=== PATIENT | female | born 1935 | race Two or more races ===

== ENCOUNTER 2017-06-05 16:13 | Inpatient (IN) | payer MEDICARE, BC ==
[2017-06-05] MEDS ORDERED: HEPARIN SODIUM,PORCINE 5,000 UNIT/ML 1 ML VIAL IV PRN (18:39)
[2017-06-05] MEDS ORDERED: NITROGLYCERIN SL TABS 0.4 MG TAB SUBLINGUAL PRN (18:41)
[2017-06-05] MEDS ORDERED: SODIUM CHLORIDE 0.9% 1,000 ML in EMPTY BAG 1 BAG IV ONE (18:41)
[2017-06-05] MEDS ORDERED: ALPRAZolam 0.5 MG TAB PO PRN (18:41)
[2017-06-05] MEDS ORDERED: ALPRAZolam 0.25 MG TAB PO PRN (18:41)
[2017-06-05] MEDS ORDERED: HEPARIN SODIUM,PORCINE/D5W PMX 25,000 UNIT in DEXTROSE/WATER 1 500ML.BAG IV SCH (18:45)
[2017-06-05] MEDS ORDERED: HEPARIN SODIUM,PORCINE 5,000 UNIT/ML 1 ML VIAL IV ONE (19:00)
[2017-06-05 19:24] LABS: ALT 32 U/L (9-52); AST 20 U/L (14-36); Alkaline Phosphatase 73 U/L (38-126); Anion Gap 7 mmol/L; Blood Urea Nitrogen 17 mg/dL (7-17); Calcium 8.8 mg/dL (8.4-10.2); Carbon Dioxide 24 mmol/L (22-30); Chloride 105 mmol/L (98-107); Glucose 88 mg/dL (74-99); Non-African American GFR(MDRD) >60 (>60 ml/min/1.73 sqM); Sodium 136 mmol/L (137-145); Total Bilirubin 0.3 mg/dL (0.2-1.3); Total Protein 6.4 g/dL (6.3-8.2)
--- NOTE | 2017-06-05 19:30 | XR ---
EXAMINATION TYPE: XR chest 2V DATE OF EXAM: 06/05/2017 COMPARISON: 06/04/2017 HISTORY: Chest pain TECHNIQUE: Frontal and lateral views of the chest are obtained. FINDINGS: There is no heart failure nor confluent pneumonic infiltrate. Hiatal hernia is noted. Cost ophrenic angles are clear of fluid. Thoracic aorta is atheromatous. There are chest leads. There is s purring in the thoracic spine. IMPRESSION: Hiatal hernia. No active cardiopulmonary disease. No change.
[2017-06-05 20:35] LABS: Glucose,Whole Blood 102 mg/dL (75-99)
[2017-06-05] MEDS ORDERED: ATORVASTATIN 80 MG TAB PO SCH (21:00)
[2017-06-06] MEDS ORDERED: ASPIRIN 325 MG TAB PO ONE (06:00)
[2017-06-06] MEDS ORDERED: ATORVASTATIN 80 MG TAB PO ONE (06:00)
[2017-06-06 06:17] LABS: Glucose,Whole Blood 96 mg/dL (75-99)
[2017-06-06] MEDS ORDERED: IV FLUID CONTINUATION 1,000 ML IV ONE (08:30)
[2017-06-06] MEDS ORDERED: MIDAZOLAM 2 MG/2 ML VIAL IV ONE (08:32)
[2017-06-06] MEDS ORDERED: LIDOCAINE 2% INJ 20 MG/ML SQ ONE (08:35)
[2017-06-06] MEDS ORDERED: RX INFO: IV CONTRAST WAS GIVEN 1 EACH MISC MISCELLANE PRN (08:59)
[2017-06-06] MEDS ORDERED: ASPIRIN 81 MG PO SCH (09:00)
[2017-06-06] MEDS ORDERED: IOHEXOL 350 MG/ML 125ML BOTTLE INJ ONE (09:00)
[2017-06-06] MEDS ORDERED: SODIUM CHLORIDE 0.9% 1,000 ML IV SCH (09:00)
[2017-06-06] MEDS ORDERED: ISOSORBIDE MONONITRATE ER 30 MG TAB.ER.24H PO SCH (09:00)
--- NOTE | 2017-06-06 10:06 | CC ---
CARDIAC CATHETERIZATION REPORT INDICATION: Unstable angina. PROCEDURE NOTE: After obtaining informed consent, left heart catheterization and coronary angiogram were performed via the right femoral artery using standard Coy catheters. Patient tolerated the procedure well without any obvious immediate complications. Patient received moderate conscious sedation. Total sedation time was 20 minutes. A femoral angiogram was performed and addition was made for manual hemostasis. FINDINGS: 1. HEMODYNAMICS: Left ventricular end-diastolic pressure is 8 to 10 mm. There is no significant gradient across the aortic valve. 2. LEFT VENTRICULOGRAM: Left ventriculogram was not performed. 3. ANGIOGRAPHIC DATA:. 4. LEFT MAIN CORONARY ARTERY: Left main coronary artery appears calcified but is free of significant stenosis. Divides into left anterior descending coronary artery and circumflex coronary artery. Circumflex coronary artery is a large codominant vessel and is free of significant disease. The previously stented segment within the LAD appears patent with a 40% stenosis proximal to the stent. RIGHT CORONARY ARTERY is a fair caliber vessel, shows moderate long segment of stenosis. At its worst it seems to be around 50%, but this lesion has remained unchanged compared to the angiogram done last time in 2014. CONCLUSION: Two vessel coronary artery disease as described above with patent stent within the left anterior descending artery and lesions that are unchanged in the right coronary artery and a not significant lesion in the proximal left anterior descending artery. PLAN: Will manage the patient with medical therapy. See how she does and if necessary, bring her back for an FFR. Angiographic data was reviewed by Dr. Thomas, the on-call president/gm production & live experiences. SKYLA / ERICK: [id number] /
[2017-06-06 11:13] VITALS: RESP 18
[2017-06-06 11:28] LABS: Glucose,Whole Blood 104 mg/dL (75-99)
--- NOTE | 2017-06-06 11:41 | DS ---
DISCHARGE SUMMARY DATE OF ADMISSION: 06/05/2017 DATE OF DISCHARGE: 06/06/2017. FINAL DIAGNOSIS: Unstable angina. PROCEDURES PERFORMED: Left heart catheterization. HOSPITAL COURSE: This is a 81-year-old lady with history of coronary artery disease, status post angioplasty of proximal LAD, who presented to [facility] with unstable angina. She ruled out for myocardial infarction. Did not have any EKG changes. Due to this, she was transferred to [facility] for cardiac catheterization. Patient underwent cardiac catheterization that revealed patent stents within the LAD, moderate disease within the mid right coronary artery and mild disease proximal to the stent in the LAD. Angiographic data was reviewed by Dr. Thomas the on-call forest technician, who performed her angioplasty in the past. A decision was made that the lesions were not severe enough angiographically to perform angioplasty at this time. The FFR machine is not working hence patient could not undergo FFR at this time. The plan is to treat her with medical therapy with aspirin, nitrates, and statins and see how her symptoms evolve. If necessary, she will be brought back for an FFR down the road. DISCHARGE MEDICATIONS: Include aspirin, Imdur 30 mg daily, sublingual nitroglycerin p.r.n. basis. Pravachol 20 mg daily. FOLLOWUP: The patient will be followed up in my office in a week's time. I had a long conversation with the patient's daughters after the angiogram. I explained to them at length the angiographic findings, the rationale behind the treatment plans including not doing angioplasty. The rationale behind using nitrates and statins. While the exact etiology for patient's chest discomfort is unclear, it could be due to vasospasm with the underlying coronary artery disease. I have asked the daughters to talk to their mother about taking statins more regularly. MMODL / IJN: [id number] /
[2017-06-06 12:17] VITALS: BP 99/56; PULSE 70; TEMP 96.7
[2017-06-06] MEDS ORDERED: ACETAMINOPHEN TAB 325 MG TAB PO STA (13:08)
[2017-06-06 16:39] LABS: Glucose,Whole Blood 103 mg/dL (75-99)
[2017-06-06] MEDS ORDERED: PRAVASTATIN SODIUM 20 MG TAB PO SCH (21:00)
== END 2017-06-06 18:49 | disposition home or self-care (01) | DRG 287 ==
LOC: 6SEL 16:13
PROVIDERS: ADMIT Internal Medicine Cardiovascular Disease; ATTEND Internal Medicine Cardiovascular Disease
PROC: B2111ZZ Fluoroscopy of Multiple Coronary Arteries using Low Osmolar Contrast (ICD-10-PCS; principal; 2017-06-05)
PROC: 4A023N7 Measurement of Cardiac Sampling and Pressure, Left Heart, Percutaneous Approach (ICD-10-PCS; principal; 2017-06-05)
DX: I25.110 Atherosclerotic heart disease of native coronary artery with unstable angina pectoris (principal); Z95.5 Presence of coronary angioplasty implant and graft; Z79.82 Long term (current) use of aspirin
CPT/HCPCS: 71020; 80053; 83036; 85730; 93458

== ENCOUNTER 2024-04-28 00:24 | Inpatient (IN) | payer BC, MEDICARE ==
[2024-04-28] MEDS ORDERED: NALOXONE 0.4 MG/ML 1 ML VIAL IV PRN (00:32)
[2024-04-28] MEDS: ATORVASTATIN 80 MG TAB PO STA (00:35)
--- NOTE | 2024-04-28 00:35 | ED ---
General Adult HPI - General Chief complaint: Chest Pain Stated complaint: Chest Pain Time Seen by Provider: 04/28/24 00:29 Source: patient, RN notes reviewed, old records reviewed Mode of arrival: EMS Limitations: no limitations - History of Present Illness Initial comments: 88-year-old female presenting by paramedics with chief complaint of chest pain. Patient states that approximately 1130 she developed substernal chest pain and pressure which radiated to the jaw, bilateral shoulders. Patient does describe this as an ache, no stabbing or sharp pain. This was associated with nausea and diaphoresis. Patient states she does have a history of coronary artery disease as well as A-fib. Patient is quite healthy and lives alone. She states her p ain is improved after nitroglycerin and aspirin which were administered by paramedics. She still has 5 out of 10 chest pain. - Related Data Home Medications Medication Instructions Recorded Confirmed Aspirin 81 mg PO DAILY 11/25/14 06/05/17 Multivitamins, Thera [Multivitamin 1 tab PO DAILY 06/05/17 06/05/17 (formulary)] Previous Rx's Medication Instructions Recorded Isosorbide Mononitrate ER [Imdur] 30 mg PO DAILY #90 tab.er.24h 06/06/17 Nitroglycerin Sl Tabs [Nitrostat] 0.4 mg SUBLINGUAL Q5M PRN #25 tab 06/06/17 Pravastatin Sodium [Pravachol] 20 mg PO HS #90 tab 06/06/17 Allergies Allergy/AdvReac Type Severity Reaction Status Date / Time Penicillins Allergy Unknown Verified 04/28/24 00:40 Review of Systems ROS Statement: Those systems with pertinent positive or pertinent negative responses have been documented in the HPI. ROS Other: All systems not noted in ROS Statement are negative. Past Medical History Past Medical History: Chest Pain / Angina, GERD/Reflux, Osteoarthritis (OA) Additional Past Medical History / Comment(s): currently having pressure in chest that radiates to juan arm and jaw/neck, increased sob with exertion and felt like i was going to pass out. past fibroids(had hysterectomy), hiatal hernia History of Any Multi-Drug Resistant Organisms: None Reported Past Surgical History: Appendectomy, Bladder Surgery, Cholecystectomy, Heart Catheterization With Stent, Hysterectomy Additional Past Surgical History / Comment(s): cystocele/rectocele, cataracts- lens implants Past Anesthesia/Blood Transfusion Reactions: No Reported Reaction Date of Last Stent Placement:: unk Past Psychological History: No Psychological Hx Reported Smoking Status: Never smoker Past Alcohol Use History: Occasional Past Drug Use History: None Reported - Past Family History Brother(s) Family Medical History: Congestive Heart Failure (CHF), Coronary Artery Disease (CAD), Myocardial Infarction (VT) Additional Family Medical History / Comment(s): 2 brothers had cabg Mother Additional Family Medical History / Comment(s): at age 93 Father Additional Family Medical History / Comment(s): at age 78 with emphysema Daughter(s) Family Medical History: Cancer Additional Family Medical History / Comment(s): LIVER General Exam Limitations: no limitations General appearance: alert, in no apparent distress Head exam: Present: atraumatic, normocephalic Eye exam: Present: normal appearance, PERRL ENT exam: Present: normal exam Neck exam: Present: normal inspection. Absent: tenderness, meningismus Respiratory exam: Present: normal lung sounds bilaterally. Absent: respiratory distress Cardiovascular Exam: Present: regular rate, normal rhythm GI/Abdominal exam: Present: soft. Absent: distended, tenderness Extremities exam: Present: pedal edema Neurological exam: Present: alert, oriented X3, CN II-XII intact. Absent: motor sensory deficit Psychiatric exam: Present: normal affect, normal mood Skin exam: Present: diaphoretic Course Vital Signs 04/28/24 04/28/24 04/28/24 00:26 00:30 00:35 Temperature 98.5 F Pulse Rate 69 58 L 62 Pulse Rate [ Senior Manager Mmcoe ] Respiratory 18 18 18 Rate Blood Pressure 175/85 177/83 172/89 O2 Sat by Pulse 98 99 98 Oximetry 04/28/24 04/28/24 04/28/24 00:40 00:43 00:45 Temperature Pulse Rate 61 66 Pulse Rate [ 65 Senior Manager Mmcoe ] Respiratory 18 20 Rate Blood Pressure 163/105 157/87 O2 Sat by Pulse 98 98 Oximetry 04/28/24 04/28/24 00:50 00:55 Temperature Pulse Rate 61 55 L Pulse Rate [ Senior Manager Mmcoe ] Respiratory 20 20 Rate Blood Pressure 151/83 163/89 O2 Sat by Pulse 98 98 Oximetry Medical Decision Making - Medical Decision Making Was pt. sent in by a medical professional or institution (, PA, CALL CENTER RN, urgent care, hospital, or residential...) When possible be specific @ -No Did you speak to anyone other than the patient for history (EMS, parent, family, police, friend...)? What history was obtained from this source @ -No Did you review nursing and triage notes (agree or disagree)? Why? @ -I reviewed and agree with nursing and triage notes Were old charts reviewed (outside hosp., previous admission, EMS record, old EKG, old radiological studies, urgent care reports/EKG's, residential records)? Report findings @ -No old charts were reviewed Differential Chest Pain: Stable Angina, Unstable Angina, STEMI, NSTEMI Aortic Dissection, Pneumothorax, Musculoskeletal, Esophageal Spasm GERD, Cholecystitis, Pancreatitis, Zoster, this is not meant to be an all-inclusive list. EKG interpreted by me (3pts min.). @Sinus rhythm rate of 62, ID interval 176, QRS duration 98, QTc 450, ST segment elevation in lead III and aVF, T wave inversion and ST segment depression in lead I and aVL. X-rays interpreted by me (1pt min.). @1 single view chest x-ray cardiomegaly, no pneumothorax, suprahilar opacity on the right. CT interpreted by me (1pt min.). @ -None done U/S interpreted by me (1pt. min.). @ -None done What testing was considered but not performed or refused? (CT, X-rays, U/S, labs)? Why? @ -None What meds were considered but not given or refused? Why? @ -None Did you discuss the management of the patient with other professionals (professionals i.e. , PA, CALL CENTER RN, lab, RT, psych nurse, social media designer, poultry debeaker, teacher, state patrol officer, skilled nursing case manager)? Give summary @ -Case discussed with Dr. King covering for cardiology. [facility] has been paged Was smoking cessation discussed for >3mins.? @ -No Was critical care preformed (if so, how long)? @ -[Yes, 35 minutes Were there social determinants of health that impacted care today? How? (Homelessness, low income, unemployed, alcoholism, drug addiction, transportation, low edu. Level, literacy, decrease access to med. care, long-term, rehab)? @ -No Was there de-escalation of care discussed even if they declined (Discuss DNR or withdrawal of care, Hospice)? DNR status @ -No What co-morbidities impacted this encounter? (DM, HTN, Smoking, COPD, CAD, Cancer, CVA, ARF, Chemo, Hep., AIDS, mental health diagnosis, sleep apnea, morbid obesity)? @ -[Coronary artery disease Was patient admitted / discharged? Hospital course, mention meds given and route, prescriptions, significant lab abnormalities, going to OR and other pertinent info. @ -Patient admitted with ST segment elevation in the inferior leads. History consistent with ACS with typical chest pain. Patient had been given aspirin nitroglycerin by paramedics. She is given Lipitor and heparin in the emergency department. She is taken urgently to the [facility]. Patient is agreeable with heart cath. Undiagnosed new problem with uncertain prognosis? @ -[No Drug Therapy requiring intensive monitoring for toxicity (Heparin, Nitro, Insulin, Cardizem)? @ -No Were any procedures done? @ -No Diagnosis/symptom? @ -[STEMI Acute, or Chronic, or Acute on Chronic? @ -Acute Uncomplicated (without systemic symptoms) or Complicated (systemic symptoms)? @ -Default Side effects of treatment? @ -No Exacerbation, Progression, or Severe Exacerbation? @ -No Poses a threat to life or bodily function? How? (Chest pain, USA, VT, pneumonia, PE, COPD, DKA, ARF, appy, cholecystitis, CVA, Diverticulitis, Homicidal, Suicidal, threat to staff... and all critical care pts) @Yes, ACS - Lab Data Result diagrams: 04/28/24 00:32 Critical Care Time Critical Care Time: Yes Total Critical Care Time: 35 Disposition Clinical Impression: ST elevation myocardial infarction (STEMI) Disposition: ADMITTED IP TO THIS HOSP Condition: Serious Is patient prescribed a controlled substance at d/c from ED?: No Time of Disposition: 00:35
[2024-04-28] MEDS: HEPARIN SODIUM 1,000 UN/ML (10ML VL) IV ONE (00:36)
[2024-04-28] MEDS: SODIUM CHLORIDE 0.9% 1,000 ML IV SCH ×2 (00:37→03:37)
[2024-04-28 00:50] LABS: Basophils # (A) 0.1 k/uL (0-0.2); Basophils % (A) 1 %; Eosinophils # (A) 0.5 k/uL (0-0.7); Eosinophils % (A) 7 %; HCT 43.4 % (34.0-46.0); HGB 13.9 gm/dL (11.4-16.0); Lymphocytes # (A) 2.5 k/uL (1.0-4.8); Lymphocytes % (A) 33 %; MCH 31.3 pg (25.0-35.0); Mean Platelet Volume 7.8; Monocytes # (A) 0.7 k/uL (0-1.0); Monocytes % (A) 9 %; Neutrophils # (A) 3.6 k/uL (1.3-7.7); Neutrophils % (A) 47 %; Platelet Count 184 k/uL (150-450); RBC 4.43 m/uL (3.80-5.40); WBC 7.7 k/uL (3.8-10.6)
--- NOTE | 2024-04-28 00:54 | XR ---
EXAM: XR Chest, 1 View CLINICAL HISTORY: Chest pain TECHNIQUE: Frontal view of the chest. COMPARISON: Chest 2 views dated 06/05/2017 FINDINGS: Lungs: Subsegmental perihilar streaky opacities noted bilaterally. No lobar consolidation. Asymmetric heterogeneous fullness in the right suprahilar region. The posterior regional rib margins are maintained within this region. Pleural space: No large pleural effusion or pneumothorax. Heart: Borderline cardiomegaly, new from the previous examination. Mediastinum: Hiatal hernia, similar to the previous examination. Bones/joints: No acute osseous abnormality. IMPRESSION: 1. Borderline cardiomegaly, new from the previous examination. While this is presumed accentuated by portable technique, please correlate with medical history. 2. Hiatal hernia, similar to the previous examination. 3. Subsegmental perihilar streaky opacities noted bilaterally. No lobar consolidation. Differential consideration includes perihilar atelectasis with slightly diminished lung volumes versus atypical interstitial infection. 4. Asymmetric heterogeneous fullness in the right suprahilar region. The posterior regional rib margins are maintained within this region, suggesting subsegmental atelectasis or consolidation. An underlying mass is thought to be less likely; however, recommend repeat imaging, ideally with full inspiratory effort and non-portable technique.
[2024-04-28 01:05] LABS: Partial Thromboplastin Time 25.1 sec (22.0-30.0); Prothrombin Time 11.3 sec (10.0-12.5)
[2024-04-28 01:06] LABS: ALT 17 U/L (4-34); AST 27 U/L (14-36); African American GFR (CKD) >90 (>60 ml/min/1.73 sqM); Albumin 3.8 g/dL (3.5-5.0); Alkaline Phosphatase 86 U/L (38-126); Anion Gap 6 mmol/L; Blood Urea Nitrogen 23 mg/dL (7-17); Calcium 8.9 mg/dL (8.4-10.2); Carbon Dioxide 22 mmol/L (22-30); Chloride 108 mmol/L (98-107); Glucose 124 mg/dL (74-99); Magnesium 1.8 mg/dL (1.6-2.3); Non-African American GFR(CKD) 87 (>60 ml/min/1.73 sqM); Potassium 4.1 mmol/L (3.5-5.1); Sodium 136 mmol/L (137-145); Total Bilirubin 0.5 mg/dL (0.2-1.3); Total Protein 6.8 g/dL (6.3-8.2)
--- NOTE | 2024-04-28 01:07 | P.CRDCN ---
History of Present Illness History of present illness: HISTORY OF PRESENTING ILLNESS This is a pleasant 88-year-old with past medical history significant for CAD status post PCI of LAD 2014, hyperlipidemia, paroxysmal atrial fibrillation. She follows with a property utilization manager in the [facility] area. She had been seen back in 2014 with PCI of her LAD. She states she has been doing fairly well up until the middle of the night at 11:30 PM she started to develop chest tightness and pressure. She states she has some mild discomfort similar to this when she had atrial fibrillation however none since that time. She was found to have ST elevation and was given aspirin and nitro with some mild improvement in discomfort. Still having 5 or 10 chest pain. Does not smoke, no alcohol, no illicit drugs. Family history of brother having bypass. EKG shows normal sinus rhythm, ST elevation inferiorly with reciprocal ST depressions 1 and aVL. REVIEW OF SYSTEMS At the time of my exam: CONSTITUTIONAL: Denies fever or chills. CARDIOVASCULAR: +chest pain, no shortness of breath, orthopnea, PND or palpitations. RESPIRATORY: Denies cough. GASTROINTESTINAL: Denies abdominal pain, diarrhea, constipation, nausea or vomiting. MUSCULOSKELETAL: Denies myalgias. NEUROLOGIC: Denies numbness, tingling or weakness. ENDOCRINE: Denies fatigue, weight change, polydipsia or polyurina. GENITOURINARY: Denies burning, hematuria or urgency with micturation. HEMATOLOGIC: Denies history of anemia or bleeding. PHYSICAL EXAMINATION Vital signs reviewed. CONSTITUTIONAL: No apparent distress. HEENT: Head is normocephalic. Pupils are equal, round. Sclerae anicteric. Mucous membranes of the mouth are moist. No JVD. No carotid bruit. CHEST EXAMINATION: Lungs are clear to auscultation. No chest wall tenderness is noted on palpation or with deep breathing. HEART EXAMINATION: Regular rate and rhythm. S1, S2 heard. No murmurs, gallops or rub. ABDOMEN: Soft, nontender. Positive bowel sounds. EXTREMITIES: 2+ peripheral pulses, no lower extremity edema and no calf tenderness. NEUROLOGIC EXAMINATION: Patient is awake, alert and oriented x3. ASSESSMENT Inferior STEMI CAD status post PCI of LAD 2014 Hyperlipidemia Paroxysmal atrial fibrillation PLAN Patient with inferior ST elevations consistent with STEMI. Discussed heart catheterization and patient is agreeable. Emergency heart catheterization. Check 2-D echo. Continue Eliquis and likely Plavix pending PCI. Further recommendations to follow. Past Medical History Past Medical History: Chest Pain / Angina, GERD/Reflux, Osteoarthritis (OA) Additional Past Medical History / Comment(s): currently having pressure in chest that radiates to juan arm and jaw/neck, increased sob with exertion and felt like i was going to pass out. past fibroids(had hysterectomy), hiatal hernia History of Any Multi-Drug Resistant Organisms: None Reported Past Surgical History: Appendectomy, Bladder Surgery, Cholecystectomy, Heart Catheterization With Stent, Hysterectomy Additional Past Surgical History / Comment(s): cystocele/rectocele, cataracts- lens implants Past Anesthesia/Blood Transfusion Reactions: No Reported Reaction Date of Last Stent Placement:: unk Past Psychological History: No Psychological Hx Reported Smoking Status: Never smoker Past Alcohol Use History: Occasional Past Drug Use History: None Reported - Past Family History Brother(s) Family Medical History: Congestive Heart Failure (CHF), Coronary Artery Disease (CAD), Myocardial Infarction ([place]) Additional Family Medical History / Comment(s): 2 brothers had cabg Mother Additional Family Medical History / Comment(s): at age 93 Father Additional Family Medical History / Comment(s): at age 78 with emphysema Daughter(s) Family Medical History: Cancer Additional Family Medical History / Comment(s): LIVER Medications and Allergies Home Medications Medication Instructions Recorded Confirmed Type Aspirin 81 mg PO DAILY 11/25/14 06/05/17 History Multivitamins, Thera [Multivitamin 1 tab PO DAILY 06/05/17 06/05/17 History (formulary)] Isosorbide Mononitrate ER [Imdur] 30 mg PO DAILY #90 tab.er.24h 06/06/17 Rx Nitroglycerin Sl Tabs [Nitrostat] 0.4 mg SUBLINGUAL Q5M PRN #25 tab 06/06/17 Rx Pravastatin Sodium [Pravachol] 20 mg PO HS #90 tab 06/06/17 Rx Allergies Allergy/AdvReac Type Severity Reaction Status Date / Time Penicillins Allergy Unknown Verified 04/28/24 00:40 Physical Exam Vitals: Vital Signs Temp Pulse Pulse Resp BP Pulse Ox 04/28/24 00:55 55 L 20 163/89 98 04/28/24 00:50 61 20 151/83 98 04/28/24 00:45 66 20 157/87 98 04/28/24 00:43 65 04/28/24 00:40 61 18 163/105 98 04/28/24 00:35 62 18 172/89 98 04/28/24 00:30 58 L 18 177/83 99 04/28/24 00:26 98.5 F 69 18 175/85 98 Intake and Output 04/27/24 04/27/24 04/28/24 14:59 22:59 06:59 Other: Weight 72.575 kg Results 04/28/24 00:32 04/28/24 00:32 Cardiac Enzymes 04/28/24 Range/Units 00:32 AST 27 (14-36) U/L CBC 04/28/24 Range/Units 00:32 WBC 7.7 (3.8-10.6) k/uL RBC 4.43 (3.80-5.40) m/uL Hgb 13.9 (11.4-16.0) gm/dL Hct 43.4 (34.0-46.0) % Plt Count 184 (150-450) k/uL Comprehensive Metabolic Panel 04/28/24 Range/Units 00:32 Sodium 136 L (137-145) mmol/L Potassium 4.1 (3.5-5.1) mmol/L Chloride 108 H (98-107) mmol/L Carbon Dioxide 22 (22-30) mmol/L BUN 23 H (7-17) mg/dL Creatinine 0.53 (0.52-1.04) mg/dL Glucose 124 H (74-99) mg/dL Calcium 8.9 (8.4-10.2) mg/dL AST 27 (14-36) U/L ALT 17 (4-34) U/L Alkaline Phosphatase 86 (38-126) U/L Total Protein 6.8 (6.3-8.2) g/dL Albumin 3.8 (3.5-5.0) g/dL Current Medications Generic Name Dose Route Start Last Admin Trade Name Freq PRN Reason Stop Dose Admin Sodium Chloride 1,000 mls @ 75 mls/hr 04/28/24 00:45 04/28/24 00:37 Saline 0.9% IV 75 mls/hr .[id number] VERNON Administration Naloxone HCl 0.2 mg 04/28/24 00:32 Naloxone 0.4 Mg/Ml 1 Ml Vial IV Q2M PRN Opioid Reversal Intake and Output 04/27/24 04/27/24 04/28/24 14:59 22:59 06:59 Other: Weight 72.575 kg Patient Weight 04/28/24 06:59 Weight 72.575 kg 04/28/24 00:32 04/28/24 00:32
[2024-04-28] MEDS: MIDAZOLAM 2 MG/2 ML VIAL IVP ONE (01:15)
[2024-04-28] MEDS: fentaNYL (PF) 50 MCG/ML 2 ML AMP IVP ONE (01:15)
[2024-04-28] MEDS: LIDOCAINE 1% INJ 10MG/ML (20 ML MDV) SQ ONE (01:16)
[2024-04-28] MEDS: VERAPAMIL SYRINGE (5 MG/10 ML) INTRAARTER ONE (01:18)
[2024-04-28] MEDS: CLOPIDOGREL 75 MG TAB PO ONE (01:27)
[2024-04-28] MEDS: ATROPINE SULFATE 0.1 MG/ML 10ML SYRINGE IVP ONE (01:53)
[2024-04-28] MEDS: NITROGLYCERIN 1000MCG/10ML SYRINGE INTRACORON ONE (01:55)
[2024-04-28] MEDS: HEPARIN SODIUM 1,000 UN/ML (10ML VL) IVP ONE ×3 (01:59→02:30)
[2024-04-28] MEDS: IV FLUID CONTINUATION 900 ML IV ONE (02:28)
[2024-04-28] MEDS: IOPAMIDOL-370 100ML BTL INJ ONE (02:28)
[2024-04-28] MEDS ORDERED: RX INFO: IV CONTRAST WAS GIVEN 1 EACH MISC MISCELLANE PRN (02:42)
[2024-04-28] MEDS ORDERED: ATROPINE SULFATE 0.1 MG/ML 10ML SYRINGE IV PRN (02:42)
[2024-04-28] MEDS ORDERED: NITROGLYCERIN SL TABS 0.4 MG TAB SUBLINGUAL PRN (02:42)
[2024-04-28] MEDS ORDERED: ZOLPIDEM 5 MG TAB PO PRN (02:42)
--- NOTE | 2024-04-28 02:42 | P.PRCINT ---
Percutaneous Coronary Int. - Percutaneous Coronary Intervention Percutaneous Coronary Intervention: PROCEDURES PERFORMED: Bilateral coronary angiography, ultrasound guided arterial access, PCI proximal to mid RCA with overlapping 3.5 x 28mm, 3.5 x 38mm Xience SEAN and PCI of distal RCA with a 3.0 x 8mm Xience SEAN INDICATION: Inferior STEMI CONSENT:I have discussed the risks, benefits and alternative therapies for the above-mentioned procedure and for both sedation/analgesia as well as necessary blood product administration, if indicated, as they pertain to this patient. The patient has indicated understanding and acceptance of the risks and procedures discussed. PROCEDURE: After the risks, benefits and alternatives of the above mentioned procedure explained in detail with the patient, informed consent was obtained. Patient was taken to the catheterization lab and prepped and draped in usual fashion. Ultrasound guidance was used to assess for arterial access. 1% lidocaine was used to anesthetize the right radial artery. A 6-Croatian sheath was placed in the right radial artery using modified Seldinger technique and ultrasound guidance. Left coronary angiography was performed with a 5-Croatian JL 3.5 catheter and right coronary angiography was attempted with a 6Fr AL 0.75 guide and a 6-Croatian FR5 catheter however due to toruosity, unable to sit guide. Therefore radial approach was abandonded and a 6Fr sheath was placed in the right femoral artery using ultrasound guidance. multiple catheters were attempted to engage the RCA with difficulty manipulating the catheter secondary to patient's tortuosity. AL 0.75 guide and AR to guide were unable to cannulate the artery. Using a 6-Croatian FR5 guide, the artery was able to be cannulated. A 0.014 was for wire was advanced in the distal PDA. Predilation was performed with a 2.5 x 12 mm balloon. There was a more focal distal 80% RCA and PDA stenosis and attempted to place a 3.0 x 12 mm stent however unable to pass. The midportion of the RCA was predilated with a 3.5 NC balloon. Next a 3.5 x 38 mm Xience SEAN was placed in the mid RCA. The guideliner was able to be brought down to the mid RCA and with the help of the guideliner a 3.0 x 8 mm stent was able to be placed at the distal RCA and the PDA.next a 3.5 x 28 mm Xience SEAN was placed overlapping the first stents back to the origin of the RCA. The proximal and mid stents were postdilated with a 3.5 noncompliant balloon. Final angiograms were performed. Pre-intervention there was 100% stenosis with AFSANEH 0 flow and post intervention there was <10% stenosis and AFSANEH 3 flow. The right radial sheath was removed and a TR band was placed with hemostasis achieved. A femoral angiogram was performed which showed adequate anatomy for closure and therefore a 6-Croatian Angio-Seal was placed. The patient tolerated the procedure well. Patient was transported back to the post catheterization holding area in stable condition. Conscious Sedation: Patient was monitored under the direct supervision of myself for conscious sedation using Versed and fentanyl for a total duration of 75 minutes HEMODYNAMICS: Ao: 154/88 SELECTIVE CORONARY ARTERIOGRAPHY: LEFT MAIN: The left main is a large caliber vessel which bifurcates into the LAD and circumflex. There is no significant stenosis. LEFT ANTERIOR DESCENDING CORONARY ARTERY: LAD is a large caliber vessel which wraps around to the apex. There is a patent proximal mid LAD stent with 20-30% proximal LAD stenosis. There is a mid LAD 40% stenosis after a moderate caliber diagonal 1 branch and otherwise mild luminal irregularities.. LEFT CIRCUMFLEX CORONARY ARTERY: Left circumflex is a moderate to large caliber vessel with 20-30% proximal and mid circumflex stenosis and otherwise mild luminal irregularities. The circumflex gives off a PLV branch and is codominant. RIGHT CORONARY ARTERY: The right coronary artery is a large caliber vessel which gives off a PDA and PLV branch and is the dominant vessel. There is 100% proximal RCA stenosis. There is additional 80% distal RCA stenosis and otherwise mild luminal irregularities. FINAL IMPRESSION: 1. CAD as described above including 20-30% proximal LAD stenosis, patent proximal and mid LAD stent, mid LAD 40% stenosis, proximal circumflex 20th 30% stenosis, 100% proximal RCA stenosis, 80% distal RCA stenosis 2. S/p PCI proximal to mid RCA with overlapping 3.5 x 28mm, 3.5 x 38mm Xience SEAN and PCI of distal RCA with a 3.0 x 8mm Xience SEAN PLAN: 1. Aggressive risk factor modification per most recent ACC/AHA guidelines. 2. Continue aspirin, Plavix and Eliquis for 1 week then transition to Eliquis and Plavix for 12 months
[2024-04-28 03:15] LABS: Glucose,Whole Blood 139 mg/dL (70-110)
--- NOTE | 2024-04-28 07:26 | P.PN ---
Subjective Progress Note Date: 04/28/24 PROGRESS NOTE The patient is an 88-year-old female with a known history of CAD, status post stenting of the LAD in 2014 who presented with an acute inferior wall myocardial infarction, underwent cardiac catheterization by Dr. King and was found to have occluded RCA and underwent stenting of the RCA using a 3.5 x 28, 3.5 x 38 and 3.0 x 8 mm Xience stent. The LAD was patent with no evidence of high-grade stenosis. She has a history of paroxysmal atrial fibrillation and has been anticoagulated. She is in sinus mechanism at this time. She is feeling well this morning without any symptoms of chest discomfort and her breathing is stable. She is active at home without any symptoms of chest discomfort until yesterday. Hemodynamically she is stable. There is no evidence of ventricular ectopic activity. Medications: Aspirin, atorvastatin 80 mg daily, clopidogrel 75 mg daily PHYSICAL EXAMINATION: Blood pressure 128/70 heart rate 70 LUNGS: Clear to auscultation HEART: Regular rate and rhythm, S1, S2. No S3. Systolic ejection murmur ABDOMEN: Soft, nontender, no organomegaly EXTREMETIES: No edema, right femoral area clean, TR band on the right radial artery, no hematoma LAB: On presentation potassium 4.1, BUN 23, creatinine 0.53 IMPRESSION: 1. Status post inferior wall myocardial infarction with stenting of the RCA 2. Paroxysmal atrial fibrillation, maintaining sinus mechanism 3. Prior stenting of the LAD in 2014, patent 4. History of hyperlipidemia PLAN: 1. Start Eliquis tonight, continue aspirin for another week then stop aspirin and continue on Plavix and Eliquis for 1 year 2. Obtain an echocardiogram with Doppler 3. Start low-dose beta-dawna 4. If stable in the afternoon transfer to telemetry and increase physical activity Objective - Vital Signs Vital signs: Vital Signs Temp 98.8 F 04/28/24 04:00 Pulse 73 04/28/24 07:02 Resp 18 04/28/24 07:02 BP 128/71 04/28/24 07:02 Pulse Ox 99 04/28/24 07:02 FiO2 Intake & Output 04/27/24 04/28/24 04/28/24 18:59 06:59 18:59 Intake Total 725 75 Output Total 0 0 Balance 725 75 Weight 72.575 kg Intake: IV 500 Intake, IV Titration 225 75 Amount Sodium Chloride 0.9% 1, 225 75 000 ml @ 75 mls/hr IV . [id number] [facility] Rx#:[id number] Output: Urine 0 0 - Labs CBC & Chem 7: 04/28/24 00:32 04/28/24 00:32 Labs: Abnormal Lab Results - Last 24 Hours (Table) 04/28/24 04/28/24 04/28/24 Range/Units 00:32 00:32 03:13 Sodium 136 L (137-145) mmol/L Chloride 108 H (98-107) mmol/L BUN 23 H (7-17) mg/dL Glucose 124 H (74-99) mg/dL POC Glucose (mg/dL) 139 H (70-110) mg/dL Troponin I 0.055 H* (0.000-0.034) ng/mL
[2024-04-28] MEDS ORDERED: MAG HYDROX/AL HYDROX/SIMETH 30 ML CUP PO PRN (08:00)
[2024-04-28] MEDS: METOPROLOL TARTRATE 25 MG TAB PO SCH (09:00)
[2024-04-28] MEDS: ASPIRIN 81 MG PO SCH (09:00)
[2024-04-28 10:25] VITALS: BMI 31.2
--- NOTE | 2024-04-28 17:17 | CA ---
Transthoracic Echo Report Name: Agnieszka Ragland Age: 88 Gender: F : 1935 Exam Date: 04/28/2024 08:20 Exam Location: [place] [facility] Ht (in): 60 Wt (lb): 160 Ordering Physician: Davie King DO ([email or web address]) Attending/Referring Phys: Zipper Measurer Jenny Enciso RDCS Procedure CPT: Indications: Re Inferior STEMI Cardiac Hx: Technical Quality: Fair Contrast 1: Total Dose (mL): Contrast 2: Total Dose (mL): MEASUREMENTS (Male / Female) Normal Values 2D ECHO LV Diastolic Diameter PLAX 3.8 cm 4.2 - 5.9 / 3.9 - 5.3 cm LV Systolic Diameter PLAX 1.6 cm IVS Diastolic Thickness 1.4 cm 0.6 - 1.0 / 0.6 - 0.9 cm LVPW Diastolic Thickness 1.2 cm 0.6 - 1.0 / 0.6 - 0.9 cm LV Relative Wall Thickness 0.7 RV Internal Dim ED PLAX 2.5 cm LA Volume 60.8 cm??? 18 - 58 / 22 - 52 cm??? LA Volume Index 34.1 cm???/m??? 16 - 28 cm???/m??? M-MODE Aortic Root Diameter MM 2.3 cm LA Systolic Diameter MM 3.3 cm LA Ao Ratio MM 1.5 AV Cusp Separation MM 1.4 cm DOPPLER AV Peak Velocity 177.8 cm/s AV Peak Gradient 12.6 mmHg AV Mean Velocity 120.9 cm/s AV Mean Gradient 6.5 mmHg AV Velocity Time Integral 35.4 cm AI Peak Velocity 384.1 cm/s AI Peak Gradient 59.0 mmHg AI Pressure Half Time 504.9 ms LVOT Peak Velocity 126.3 cm/s LVOT Peak Gradient 6.4 mmHg LVOT Velocity Time Integral 29.0 cm MV Area PHT 3.8 cm??? Mitral E Point Velocity 57.6 cm/s Mitral A Point Velocity 107.7 cm/s Mitral E to A Ratio 0.5 MV Deceleration Time 198.9 ms MV E' Velocity 4.2 cm/s Mitral E to MV E' Ratio 13.7 TR Peak Velocity 248.7 cm/s TR Peak Gradient 24.7 mmHg Right Ventricular Systolic Press 29.0 mmHg FINDINGS Left Ventricle Moderately increased left ventricular wall thickness. Left ventricular cavity size normal. Normal left ventricular systolic function with no obvious regional wall motion abnormalities. Left ventricular ejection fraction is estimated at 55-60 %. Grade 1 diastolic dysfunction. Right Ventricle Normal right ventricular size and function. Right ventricular systolic pressure within normal limits. Right Atrium Normal right atrial size. Left Atrium Mildly increased left atrial volume. Mildly increased left atrial area. Mitral Valve Structurally normal mitral valve. Mitral valve thickened. Moderate mitral annular calcification. Mild mitral regurgitation. Aortic Valve Trileaflet aortic valve. No aortic valve stenosis. But mild aortic insufficiency Tricuspid Valve Structurally normal tricuspid valve. Mild tricuspid regurgitation. Pulmonic Valve Structurally normal pulmonic valve. Pericardium No pericardial effusion. Aorta Normal size aortic root and proximal ascending aorta. CONCLUSIONS Normal LV systolic function Aortic sclerosis with mild aortic insufficiency Thickened mitral valve leaflets with mild mitral regurgitation Previewed by: Dr. Andrews Thomas MD (Electronically Signed) Final Date: 28 April 2024 15:52
[2024-04-28] MEDS: APIXABAN 5 MG TAB PO SCH (20:10)
[2024-04-28] MEDS: ATORVASTATIN 80 MG TAB PO SCH (20:11)
[2024-04-29 06:40] LABS: Basophils # (A) 0.1 k/uL (0-0.2); Basophils % (A) 1 %; Eosinophils # (A) 0.4 k/uL (0-0.7); Eosinophils % (A) 4 %; HCT 37.5 % (34.0-46.0); HGB 11.8 gm/dL (11.4-16.0); Hypochromasia Slight; Lymphocytes # (A) 1.6 k/uL (1.0-4.8); Lymphocytes % (A) 18 %; MCH 32.1 pg (25.0-35.0); MCHC 31.6 g/dL (31.0-37.0); MCV 101.5 fL (80.0-100.0); Macrocytosis Slight; Mean Platelet Volume 7.9; Monocytes % (A) 11 %; Neutrophils % (A) 65 %; Platelet Count 171 k/uL (150-450); RBC 3.69 m/uL (3.80-5.40); RDW 13.2 % (11.5-15.5); WBC 9.2 k/uL (3.8-10.6)
[2024-04-29 07:07] LABS: ALT 20 U/L (4-34); African American GFR (CKD) >90 (>60 ml/min/1.73 sqM); Albumin 3.1 g/dL (3.5-5.0); Blood Urea Nitrogen 15 mg/dL (7-17); Calcium 8.7 mg/dL (8.4-10.2); Carbon Dioxide 21 mmol/L (22-30); Glucose 103 mg/dL (74-99); Non-African American GFR(CKD) 87 (>60 ml/min/1.73 sqM); Sodium 133 mmol/L (137-145); Total Bilirubin 0.9 mg/dL (0.2-1.3); Total Protein 5.6 g/dL (6.3-8.2)
[2024-04-29 07:18] LABS: AST 67 U/L (14-36); Alkaline Phosphatase 58 U/L (38-126)
[2024-04-29 07:23] LABS: Anion Gap 1 mmol/L; Chloride 111 mmol/L (98-107)
--- NOTE | 2024-04-29 07:40 | P.PN ---
Subjective Progress Note Date: 04/29/24 PROGRESS NOTE The patient is an 88-year-old female with a known history of CAD, status post stenting of the LAD in 2014 who presented with an acute inferior wall myocardial infarction, underwent cardiac catheterization by Dr. King and was found to have occluded RCA and underwent stenting of the RCA using a 3.5 x 28, 3.5 x 38 and 3.0 x 8 mm Xience stent. The LAD was patent with no evidence of high-grade stenosis. She has a history of paroxysmal atrial fibrillation and has been anticoagulated. She is in sinus mechanism at this time. She is feeling well this morning without any symptoms of chest discomfort and her breathing is stable. She is active at home without any symptoms of chest discomfort until yesterday. Hemodynamically she is stable. There is no evidence of ventricular ectopic activity. April 29: The patient feels well this morning, she denies any chest discomfort, she is ambulating in the room without difficulties. She continues to be in sinus mechanism. Hemodynamically stable. Her echocardiogram showed a preserved systolic function with mild mitral regurgitation and mild aortic regurgitation. Her EKG is consistent with inferior wall myocardial infarction. Medications: Aspirin, atorvastatin 80 mg daily, clopidogrel 75 mg daily, Eliquis 5 mg twice a day, metoprolol 25 mg twice a day PHYSICAL EXAMINATION: Blood pressure 102/40 heart rate 60 LUNGS: Clear to auscultation HEART: Regular rate and rhythm, S1, S2. No S3. Systolic ejection murmur ABDOMEN: Soft, nontender, no organomegaly EXTREMETIES: No edema, LAB: Hemoglobin 11.8, BUN 15, creatinine 0.52 IMPRESSION: 1. Status post inferior wall myocardial infarction with stenting of the RCA 2. Paroxysmal atrial fibrillation, maintaining sinus mechanism 3. Prior stenting of the LAD in 2014, patent 4. History of hyperlipidemia PLAN: 1. Continue present therapy 2. Transfer to telemetry 3. Increase activity 4. If stable probable discharge home tomorrow. Objective - Vital Signs Vital signs: Vital Signs Temp 98.0 F 04/29/24 04:00 Pulse 61 04/29/24 07:00 Resp 14 04/29/24 07:00 BP 92/47 04/29/24 07:00 Pulse Ox 98 04/29/24 07:00 FiO2 Intake & Output 04/28/24 04/29/24 04/29/24 18:59 06:59 18:59 Intake Total 225 Output Total 600 130 0 Balance -375 -130 0 Weight 72.575 kg 74 kg Intake: Intake, IV Titration 225 Amount Sodium Chloride 0.9% 1, 225 000 ml @ 75 mls/hr IV . [id number] [facility] Rx#:[id number] Output: Urine 600 130 0 Other: # Voids 1 1 # Bowel Movements 1 - Labs CBC & Chem 7: 04/29/24 06:08 04/29/24 06:03 Labs: Abnormal Lab Results - Last 24 Hours (Table) 04/29/24 04/29/24 Range/Units 06:03 06:08 RBC 3.69 L (3.80-5.40) m/uL MCV 101.5 H (80.0-100.0) fL Sodium 133 L (137-145) mmol/L Chloride 111 H (98-107) mmol/L Carbon Dioxide 21 L (22-30) mmol/L Glucose 103 H (74-99) mg/dL AST 67 H (14-36) U/L Total Protein 5.6 L (6.3-8.2) g/dL Albumin 3.1 L (3.5-5.0) g/dL
[2024-04-29] MEDS: CLOPIDOGREL 75 MG TAB PO SCH (08:13)
--- NOTE | 2024-04-29 13:50 | XR ---
EXAMINATION TYPE: XR chest 1V portable DATE OF EXAM: 04/29/2024 COMPARISON: 04/28/2024 INDICATION: CHF TECHNIQUE: Single frontal view of the chest is obtained. FINDINGS: The heart size is normal. The pulmonary vasculature is normal. The lungs are clear. IMPRESSION: 1. No acute pulmonary process. [facility], , 04/29/2024 1:47 PM
--- NOTE | 2024-04-29 14:50 | HP ---
HISTORY AND PHYSICAL CHIEF COMPLAINT: Chest pain. HISTORY OF PRESENT ILLNESS: This is an 88-year-old woman, who was admitted with substernal chest pain radiating to the jaw before going to sleep, which was 5/10 in intensity and troponins found to be 0.055. Cardiology performed a cardiac catheterization and RCA stenting and the patient will be admitted for further evaluation and treatment. There is no history of any fever, rigors, or chills. EKG showed hyperacute changes in the inferior leads. PAST MEDICAL HISTORY: Reviewed include atrial fibrillation, DJD. Rest of the history and rest of the chart is also reviewed. HOME MEDICATIONS: Eliquis. ALLERGIES: Gluten. FAMILY HISTORY: History of CHF, myocardial infarction. SOCIAL HISTORY: No history of smoking. REVIEW OF SYSTEMS: Fourteen-point review is negative except as mentioned earlier. PHYSICAL EXAMINATION: VITAL SIGNS: Pulse 73, blood pressure 120/87, respirations 18. HEENT: Conjunctivae normal. CARDIOVASCULAR: S1, S2. RESPIRATIONS: A few scattered rhonchi. ABDOMEN: Soft, nontender. LEGS: No edema. NERVOUS SYSTEM: Nonfocal. LABORATORY DATA: Troponin 0.05. ASSESSMENT: 1. Acute inferior wall myocardial infarction, status post cardiac catheterization and stenting of the right coronary artery. 2. Troponin 0.055. 3. Atrial fibrillation. 4. Gastroesophageal reflux disease. 5. Degenerative joint disease. RECOMMENDATIONS AND DISCUSSION: This is an 88-year-old woman, who presented with multiple medical issues, we will monitor the patient closely. Continue the current medications and dual antiplatelet treatment. Continue with Eliquis. Repeat labs. Increase ambulation. Closely follow with Cardiology. Prognosis guarded. Further recommendations to follow. MMODL / IJN: [id number] /
[2024-04-29 16:57] LABS: Glucose,Whole Blood 120 mg/dL (70-110)
[2024-04-29] MEDS: CALCIUM CARBONATE 500 MG CHEWABLE PO ONE (17:14)
[2024-04-29 23:00] VITALS: TEMP 98.1
--- NOTE | 2024-04-30 06:28 | P.PN ---
Subjective Progress Note Date: 04/29/24 Patient is evaluated today in the ICU. Post cardiac catheterization with stent X 3 to the RCA. No reports of chest pain at this time. Patient currently on triple therapy with eliquis, aspirin, and plavix. Review of Systems Constitutional: Denied any fatigue denied any fever. Cardio vascular: denied any chest pain, palpitations Gastrointestinal: denied any nausea, vomiting, diarrhea Pulmonary: Denied any shortness of breath cough Neurologic denied any new focal deficits All inpatient medications were reviewed and appropriate changes in these medications as dictated in the interval history and assessment and plan. PHYSICAL EXAMINATION: GENERAL: The patient is alert and oriented x3, not in any acute distress. Well developed, well nourished. HEENT: Pupils are round and equally reacting to light. EOMI. No scleral icterus. No conjunctival pallor. Normocephalic, atraumatic. No pharyngeal erythema. No thyromegaly. CARDIOVASCULAR: S1 and S2 present. No murmurs, rubs, or gallops. PULMONARY: Chest is clear to auscultation, no wheezing or crackles. ABDOMEN: Soft, nontender, nondistended, normoactive bowel sounds. No palpable organomegaly. MUSCULOSKELETAL: No joint swelling or deformity. EXTREMITIES: No cyanosis, clubbing, or pedal edema. NEUROLOGICAL: Gross neurological examination did not reveal any focal deficits. SKIN: No rashes. Assessment STEMI Inferior wall myocardial infarction with stenting of the RCA x3 Paroxysmal atrial fibrillation anticoagulated with eliquis Gastroesophageal reflux disease Prior stenting to the LAD in 2014 Plan Patient is downgraded from the ICU Continue cardiac telemetry monitoring overnight Continue on aspirin/plavix/eliquis for the next week than discontinue aspirin 81 mg daily. Discharge home in the next 24 hours. The impression and plan of care has been dictated by Becca Amaya Nurse Practitioner as directed. Dr. Ashley MD I have performed a history and physical examination and medical decision making of this patient, discussed the same with the dictator, and agree with the dictators assessment and plan as written, documented as a scribe. Based on total visit time, I have performed more than 50% of this visit. Objective - Vital Signs Vital signs: Vital Signs Temp 98.0 F 04/29/24 04:00 Pulse 61 04/29/24 07:00 Resp 14 04/29/24 07:00 BP 92/47 04/29/24 07:00 Pulse Ox 98 04/29/24 07:00 FiO2 Intake & Output 04/28/24 04/29/24 04/29/24 18:59 06:59 18:59 Intake Total 225 Output Total 600 130 0 Balance -375 -130 0 Weight 72.575 kg 74 kg Intake: Intake, IV Titration 225 Amount Sodium Chloride 0.9% 1, 225 000 ml @ 75 mls/hr IV . [id number] [facility] Rx#:[id number] Output: Urine 600 130 0 Other: # Voids 1 1 # Bowel Movements 1 - Labs CBC & Chem 7: 04/29/24 06:08 04/29/24 06:03 Labs: Abnormal Lab Results - Last 24 Hours (Table) 04/29/24 04/29/24 Range/Units 06:03 06:08 RBC 3.69 L (3.80-5.40) m/uL MCV 101.5 H (80.0-100.0) fL Sodium 133 L (137-145) mmol/L Chloride 111 H (98-107) mmol/L Carbon Dioxide 21 L (22-30) mmol/L Glucose 103 H (74-99) mg/dL AST 67 H (14-36) U/L Total Protein 5.6 L (6.3-8.2) g/dL Albumin 3.1 L (3.5-5.0) g/dL Assessment and Plan Time with Patient: Less than 30
[2024-04-30 13:45] VITALS: BP 106/71; PULSE 88; RESP 18
--- NOTE | 2024-04-30 14:56 | P.PN ---
Subjective Progress Note Date: 04/30/24 PROGRESS NOTE The patient is an 88-year-old female with a known history of CAD, status post stenting of the LAD in 2014 who presented with an acute inferior wall myocardial infarction, underwent cardiac catheterization by Dr. King and was found to have occluded RCA and underwent stenting of the RCA using a 3.5 x 28, 3.5 x 38 and 3.0 x 8 mm Xience stent. The LAD was patent with no evidence of high-grade stenosis. She has a history of paroxysmal atrial fibrillation and has been anticoagulated. She is in sinus mechanism at this time. She is feeling well this morning without any symptoms of chest discomfort and her breathing is stable. She is active at home without any symptoms of chest discomfort until yesterday. Hemodynamically she is stable. There is no evidence of ventricular ectopic activity. April 29: The patient feels well this morning, she denies any chest discomfort, she is ambulating in the room without difficulties. She continues to be in sinus mechanism. Hemodynamically stable. Her echocardiogram showed a preserved systolic function with mild mitral regurgitation and mild aortic regurgitation. Her EKG is consistent with inferior wall myocardial infarction. April 30: Patient is seen today on the cardiac stepdown unit as she has been transferred out of the intensive care unit. She states she slept well last night. She denies having any chest pain, shortness of breath, lightheadedness, dizziness. No palpitations. Blood pressure 106/71, heart rate 88, pulse ox 99% on room air. Medications: Aspirin, atorvastatin 80 mg daily, clopidogrel 75 mg daily, Eliquis 5 mg twice a day, metoprolol 25 mg twice a day PHYSICAL EXAMINATION: Blood pressure 102/40 heart rate 60 LUNGS: Clear to auscultation HEART: Regular rate and rhythm, S1, S2. No S3. Systolic ejection murmur ABDOMEN: Soft, nontender, no organomegaly EXTREMETIES: No edema, IMPRESSION: 1. Status post inferior wall myocardial infarction with stenting of the RCA 2. Paroxysmal atrial fibrillation, maintaining sinus mechanism 3. Prior stenting of the LAD in 2014, patent 4. History of hyperlipidemia PLAN: Continue present therapy Patient is cleared for cardiology for discharge. Plan to continue aspirin for 1 week and discontinue otherwise, continue Plavix and Eliquis for 1 year. Patient given option of following up with either the [facility] in [place] that she has seen before or follow-up with Dr. King in the office in 1 week. Nurse practitioner note has been reviewed, I agree with documented findings and plan of care. Patient was seen and examined. Objective - Vital Signs Vital signs: Vital Signs Temp 98.1 F 04/29/24 23:00 Pulse 93 04/30/24 08:10 Resp 16 04/30/24 08:10 BP 96/66 04/30/24 08:10 Pulse Ox 100 04/30/24 08:10 FiO2 Intake & Output 04/29/24 04/30/24 04/30/24 18:59 06:59 18:59 Intake Total 118 Output Total 0 Balance 0 118 Weight 73.8 kg Intake: Oral 118 Output: Urine 0 Other: Voiding Method External Catheter Toilet Toilet Incontinent Incontinent # Voids 1 # Bowel Movements 1 - Labs CBC & Chem 7: 04/29/24 06:08 04/29/24 06:03 Labs: Abnormal Lab Results - Last 24 Hours (Table) 04/29/24 Range/Units 16:56 POC Glucose (mg/dL) 120 H (70-110) mg/dL
--- NOTE | 2024-05-04 21:42 | P.DS ---
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 She will follow-up with Dr. King in the office in 1 week postcardiac catheterization following that she will follow-up with her usual statistical geneticist out of [place], [place]. Patient to make an appt for her PCP Dr. Zapien in 2 to 3 days. Hospital Course This is a pleasant 88-year-old with past medical history significant for CAD status post PCI of LAD 2015, hyperlipidemia, paroxysmal atrial fibrillation, GERD. Patient began experiencing chest pressure and tightness in the middle of the night at 11:30 PM. [place] similar when she had gone into atrial fibrillation in the past. She was found to have ST elevation and was given aspirin and nitro with some mild improvement in discomfort. Does not smoke, no alcohol, no illicit drugs. Family history of brother having bypass. EKG shows normal sinus rhythm, ST elevation inferior leads. Was still having chest pain 5/10 on admission. Patient went to the cardiovascular lab found to have 20-30% proximal LAD stenosis, patent proximal and mild LAD stent, mild LAD 40% stenosis, proximal Circ 20-30% stenosis, 100% RCA stenosis, 80% distal RCA stenosis. 3 stents were placed in the RCA. Patient to continue triple therapy aspirin eliquis and plavix for 3 weeks than transition to eliquis and plavix. She was monitored in the ICU post cath with no complications. Echocardiogram reveals normal LV systolic function with aortic sclerosis with mild aortic insufficiency. Thickened mitral valve leaflets with mild MR. Patient is not having any further reports of chest pain, no shortness of breath, no dizziness or lightheadedness. She will be discharge home. Please see medication reconciliation for a list of current medications. Thank you for allowing us to participate in the care of this patient. The impression and plan of care has been dictated by Nurse Luis Enrique Ramon as directed. Dr. Ashley MD I have performed a history and physical examination and medical decision making of this patient, discussed the same with the dictator, and agree with the dict ators assessment and plan as written, documented as a scribe. Based on total visit time, I have performed more than 50% of this visit. Patient Condition at Discharge: Stable Plan - Discharge Summary New Discharge Prescriptions: New Atorvastatin [Lipitor] 80 mg PO HS #30 tab Metoprolol Tartrate [Lopressor] 25 mg PO BID #60 tab Famotidine [Pepcid] 20 mg PO DAILY #30 tablet Clopidogrel [Plavix] 75 mg PO DAILY #30 tab Nitroglycerin Sl Tabs [Nitrostat] 0.4 mg SUBLINGUAL Q5M PRN #25 tab PRN Reason: Chest Pain Continue Aspirin 81 mg PO DAILY #0 Apixaban [Eliquis] 5 mg PO BID Discharge Medication List Apixaban [Eliquis] 5 mg PO BID 04/28/24 [History] Aspirin 81 mg PO DAILY #0 04/30/24 [Rx] Atorvastatin [Lipitor] 80 mg PO HS #30 tab 04/30/24 [Rx] Clopidogrel [Plavix] 75 mg PO DAILY #30 tab 04/30/24 [Rx] Famotidine [Pepcid] 20 mg PO DAILY #30 tablet 04/30/24 [Rx] Metoprolol Tartrate [Lopressor] 25 mg PO BID #60 tab 04/30/24 [Rx] Nitroglycerin Sl Tabs [Nitrostat] 0.4 mg SUBLINGUAL Q5M PRN #25 tab 04/30/24 [Rx] Follow up Appointment(s)/Referral(s): Irish Zapien MD [Primary Care Provider] - 1-2 days (Appt Fri05/07/24 1:30pm) Davie King DO [STAFF PHYSICIAN] - 1 Week (Left message to have the office call patient to schedule.) Ambulatory/Diagnostic Orders: Basic Metabolic Panel [LAB.AMB] Time Frame: 4 Days, Location: None Selected Patient Instructions/Handouts: *Surgery [facility] - After Heart Catheterization - Outside Sales Manager Instructions Activity/Diet/Wound Care/Special Instructions: Aspirin 81 mg daily Last dose Friday05/04/2024 than discontinue. Continue on plavix 75 mg daily this is for your stents Continue on eliquis Discharge Disposition: HOME SELF-CARE
== END 2024-04-30 14:41 | disposition home or self-care (01) | DRG 322 ==
LOC: EC 00:24 → 2SICU 00:32 → 3SCARD 04-29 18:43
PROVIDERS: ADMIT Hospitalist; ATTEND Hospitalist
PROC: B2111ZZ Fluoroscopy of Multiple Coronary Arteries using Low Osmolar Contrast (ICD-10-PCS; 2024-04-28)
PROC: 0270356 Dilation of Coronary Artery, One Artery, Bifurcation, with Two Drug-eluting Intraluminal Devices, Percutaneous Approach (ICD-10-PCS; principal; 2024-04-28 01:00)
PROC: 4A023N7 Measurement of Cardiac Sampling and Pressure, Left Heart, Percutaneous Approach (ICD-10-PCS; 2024-04-28 01:00)
DX: I21.19 ST elevation (STEMI) myocardial infarction involving other coronary artery of inferior wall (principal); E78.5 Hyperlipidemia, unspecified; I25.10 Atherosclerotic heart disease of native coronary artery without angina pectoris; Z95.5 Presence of coronary angioplasty implant and graft; K21.9 Gastro-esophageal reflux disease without esophagitis; M19.90 Unspecified osteoarthritis, unspecified site; I70.0 Atherosclerosis of aorta; I48.0 Paroxysmal atrial fibrillation; Z90.710 Acquired absence of both cervix and uterus; Z79.01 Long term (current) use of anticoagulants; Z79.82 Long term (current) use of aspirin; Z79.899 Other long term (current) drug therapy; Z82.49 Family history of ischemic heart disease and other diseases of the circulatory system
CPT/HCPCS: 71045; 80053; 83735; 83880; 84484; 85025; 85610; 85730; 93005; 93306; 93458; 96361; 96374; 99291